=== PATIENT | female | born 1940 | race Two or more races ===

== ENCOUNTER 2020-09-30 12:20 | Emergency (ER) | payer MEDICARE ==
[~2020-09-30] VITALS: Ht 167.6 cm; Wt 75.3 kg
--- NOTE | 2020-09-30 12:53 | NUR ---
Patient came in to the er c/o weakness, cough, and congestion x 10 days. On room air, breathing evenly and unlabored. Connected to the monitor and pulse ox. kept comfortable, will continue to monitor accordingly.
--- NOTE | 2020-09-30 13:04 | NUR ---
SEPTIC WORK UP DONE, LABS AND URINE SENT TO LABS ASYMPTOMATIC
[2020-09-30 13:09] LABS: BASOPHILS % (AUTO) 0.5 % (0.0-2.0); EOSINOPHILS % (AUTO) 3.3 % (0.0-6.0); HEMATOCRIT 40 % (33-45); HEMOGLOBIN 13.5 g/dL (11.5-14.8); LYMPHOCYTES # (AUTO) 2.1 /CMM (0.8-4.8); LYMPHOCYTES % (AUTO) 33.1 % (20.0-44.0); MEAN CORPUSCULAR HGB CONC 34 g/dl (31.0-36.0); MEAN CORPUSCULAR VOLUME 91 fL (82-100); MONOCYTES # (AUTO) 0.5 /CMM (0.1-1.30); MONOCYTES % (AUTO) 7.8 % (2.0-12.0); NEUTROPHILS # (AUTO) 3.6 /CMM (1.8-8.9); NEUTROPHILS % (AUTO) 55.3 % (43.0-81.0); PLATELET COUNT (AUTO) 296 /CMM (150-450); WHITE BLOOD COUNT (AUTO) 6.5 K/uL (4.3-11.0)
[2020-09-30 13:18] LABS: BILIRUBIN,URINE Negative (NEGATIVE); COLOR,URINE YELLOW (YELLOW); LEUKOCYTE ESTERASE ,URINE Negative (NEGATIVE); NITRITE, URINE Negative (NEGATIVE); PROTEIN,URINE Negative (NEGATIVE); UGLUCOSE Negative (NEGATIVE); UROBILINOGEN,URINE 0.2 EU/dL (0.2)
[2020-09-30 13:33] LABS: ALANINE AMINOTRANSFERASE 22 U/L (12-78); ALBUMIN 3.8 g/dL (3.4-5.0); ALKALINE PHOSPHATASE 75 U/L (46-116); ASPARTATE AMINOTRANSFERASE 16 U/L (15-37); BILIRUBIN,DIRECT 0.1 mg/dL (0.0-0.2); BILIRUBIN,TOTAL 0.7 mg/dL (0.2-1.0); CALCIUM, SERUM 10.3 mg/dL (8.5-10.1); CARBON DIOXIDE 28 mmol/L (21-32); CHLORIDE 105 mmol/L (98-107); CREATININE 0.7 mg/dL (0.6-1.3); GLUCOSE 124 mg/dL (74-106); SODIUM SERUM 141 mmol/L (136-145); TOTAL PROTEIN, SERUM 8.1 g/dL (6.4-8.2); UREA NITROGEN, BLOOD 21 mg/dL (7-18)
[2020-09-30 13:35] LABS: BACTERIA,URINE Rare /HPF (None Seen); SQUAMOUS EPITHELIAL CELL,UR 0-2 /HPF (None Seen); WBC,URINE 0-2 /HPF (0-3)
[2020-09-30] MEDS ORDERED: AZIT250T PO (13:56)
[2020-09-30] MEDS ORDERED: GUAI-671 PO (13:56)
[2020-09-30 14:15] VITALS: BP 144/73
--- NOTE | 2020-09-30 14:16 | NUR ---
Patient discharged to home in stable condition. Written and verbal after care instructions given. Patient verbalizes understanding of instruction.IV removed. Catheter intact and site benign. Pressure and 4x4 applied to site. No bleeding noted.
== END 2020-09-30 14:16 | disposition home or self-care (01) ==
LOC: ER 12:24
DX: J20.9 Acute bronchitis, unspecified (principal); Z20.822 Contact with and (suspected) exposure to COVID-19; I10 Essential (primary) hypertension
CPT/HCPCS: 36415; 71045; 80048; 80076; 81001; 83605; 84145; 84484; 85025; 85730; 87040 ×2; 87086; 87426; 93005; 99285; C9803

== ENCOUNTER 2020-12-31 13:46 | Emergency (ER) | payer MEDICARE ==
[~2020-12-31] VITALS: Ht 160 cm; Wt 75.7 kg
[~2020-12-31 13:46] MED LIST: AZIT250T PO; GUAI-671 PO
--- NOTE | 2020-12-31 13:46 | NUR ---
PT BIB SELF C/O R FLANK PAIN, DYSURIA X 2 DAYS. 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 WILL CONTINUE TO MONITOR.
--- NOTE | 2020-12-31 14:29 | NUR ---
AT BEDSIDE FOR EVAL.
[2020-12-31] MEDS ORDERED: MORPHINE SULFATE INJ 4 MG/ML DISP.SYRIN ONE (14:35)
[2020-12-31] MEDS ORDERED: ONDANSETRON HCL/PF 4 MG/2 ML VIAL ONE (14:35)
--- NOTE | 2020-12-31 14:42 | NUR ---
IV LINE ESTABLISHED BLOOD DRAWN AND SENT TO LAB.
[2020-12-31 14:46] LABS: BASOPHILS # (AUTO) 0.1 K/uL (0.0-0.2); BASOPHILS % (AUTO) 0.5 % (0.0-2.0); EOSINOPHILS % (AUTO) 0.3 % (0.0-6.0); HEMATOCRIT 40 % (33-45); HEMOGLOBIN 13.3 g/dL (11.5-14.8); LYMPHOCYTES # (AUTO) 1.7 K/uL (0.8-4.8); LYMPHOCYTES % (AUTO) 12.7 % (20.0-44.0); MEAN CORPUSCULAR HGB CONC 33 g/dl (31.0-36.0); MEAN CORPUSCULAR VOLUME 91 fL (82-100); MONOCYTES # (AUTO) 1.1 K/uL (0.1-1.30); MONOCYTES % (AUTO) 8.1 % (2.0-12.0); NEUTROPHILS # (AUTO) 10.4 K/uL (1.8-8.9); NEUTROPHILS % (AUTO) 78.4 % (43.0-81.0); PLATELET COUNT (AUTO) 244 K/uL (150-450); RED BLOOD CELL COUNT(AUTO) 4.41 MIL/uL (4.0-5.2); WHITE BLOOD COUNT (AUTO) 13.3 K/uL (4.3-11.0)
[2020-12-31 14:57] LABS: BILIRUBIN,URINE SMALL (NEGATIVE); COLOR,URINE YELLOW (YELLOW); LEUKOCYTE ESTERASE ,URINE Negative (NEGATIVE); NITRITE, URINE Negative (NEGATIVE); PH,URINE 5.5 (5.0-8.0); PROTEIN,URINE 30 mg/dl (NEGATIVE); UGLUCOSE Negative (NEGATIVE); UROBILINOGEN,URINE 0.2 EU/dL (0.2)
[2020-12-31 14:58] LABS: CALCIUM, SERUM 9.2 mg/dL (8.5-10.1); CREATININE 1.1 mg/dL (0.6-1.3); POTASSIUM 3.6 mmol/L (3.5-5.1)
[2020-12-31] MEDS ORDERED: ONDANSETRON HCL/PF 4 MG/2 ML VIAL IVP ONE (15:00)
[2020-12-31] MEDS ORDERED: IV NS 0.9% 1,000 ML BAG IV ONE (15:00)
[2020-12-31] MEDS ORDERED: MORPHINE SULFATE INJ 2 MG/ML DISP.SYRIN IV ONE (15:00)
[2020-12-31 15:04] LABS: BILIRUBIN,DIRECT 0.2 mg/dL (0.0-0.2); BILIRUBIN,TOTAL 1.3 mg/dL (0.2-1.0); TOTAL PROTEIN, SERUM 8.2 g/dL (6.4-8.2)
[2020-12-31] MEDS ORDERED: IV NS 0.9% 250 ML IV ONE (15:06)
[2020-12-31] MEDS ORDERED: CT SWABBABLE VALVE TRANS SET 1 EA INFUS.SET MC ONE (15:06)
[2020-12-31] MEDS ORDERED: IOHEXOL-300 100 ML VIAL IV ONE (15:06)
[2020-12-31 15:08] LABS: WBC,URINE 0-2 /HPF (0-3)
[2020-12-31 15:09] LABS: BACTERIA,URINE Few /HPF (None Seen); SQUAMOUS EPITHELIAL CELL,UR Moderate /HPF (None Seen)
--- NOTE | 2020-12-31 15:19 | NUR ---
PT IS BACK FROM THE CT SCAN.
[2020-12-31] MEDS ORDERED: KETOROLAC TROMETHAMINE 15 MG/ML VIAL ONE (15:21)
[2020-12-31] MEDS ORDERED: KETOROLAC TROMETHAMINE INJ 30 MG/ML VIAL IV ONE (15:30)
[2020-12-31] MEDS ORDERED: LEVO88TA5 PO (15:51)
[2020-12-31] MEDS ORDERED: LOSA50TA39 PO (15:51)
[2020-12-31] MEDS ORDERED: IBUP-1957 PO (17:01)
[2020-12-31] MEDS ORDERED: ONDA4TAB11 PO (17:01)
[2020-12-31 17:17] VITALS: BP 125/76
--- NOTE | 2020-12-31 17:17 | NUR ---
IV removed. Catheter intact and site benign. Pressure and 4x4 applied to site. No bleeding noted. Patient discharged to home in stable condition. Written and verbal after care instructions given. Patient verbalizes understanding of instruction.
== END 2020-12-31 17:17 | disposition home or self-care (01) ==
LOC: ER 13:48
DX: N20.0 Calculus of kidney (principal); R10.31 Right lower quadrant pain; R11.2 Nausea with vomiting, unspecified; I10 Essential (primary) hypertension; Z88.8 Allergy status to other drugs, medicaments and biological substances; Z79.899 Other long term (current) drug therapy
CPT/HCPCS: 36415; 74177; 76705; 80048; 80076; 81001; 83690; 85025; 96361; 96374; 96375; 99285; J1885; J2270; J2405; J7030; J7050; Q9967

== ENCOUNTER 2024-03-16 11:37 | Inpatient (IN) | payer MEDICARE ==
[~2024-03-16] VITALS: Ht 167.6 cm; Wt 68.0 kg
[~2024-03-16 11:37] MED LIST changes: -AZIT250T PO; -GUAI-671 PO; +IBUP-1957 PO; +LEVO88TA5 PO; +LOSA50TA39 PO; +ONDA4TAB11 PO
[2024-03-16 12:15] LABS: BASOPHILS % (AUTO) 0.3 % (0.0-2.0); EOSINOPHILS # (AUTO) 0.2 K/uL (0.0-0.7); EOSINOPHILS % (AUTO) 2.6 % (0.0-6.0); HEMATOCRIT 37 % (33-45); HEMOGLOBIN 12.8 g/dL (11.5-14.8); LYMPHOCYTES % (AUTO) 31.8 % (20.0-44.0); MEAN CORPUSCULAR HEMOGLOBIN 32 PG (26.0-33.0); MEAN CORPUSCULAR HGB CONC 34 g/dl (31.0-36.0); MEAN CORPUSCULAR VOLUME 92 fL (82-100); MONOCYTES # (AUTO) 0.4 K/uL (0.1-1.30); MONOCYTES % (AUTO) 6.4 % (2.0-12.0); NEUTROPHILS # (AUTO) 3.8 K/uL (1.8-8.9); NEUTROPHILS % (AUTO) 58.9 % (43.0-81.0); PLATELET COUNT (AUTO) 228 K/uL (150-450); RED BLOOD CELL COUNT(AUTO) 4.05 MIL/uL (4.0-5.2); WHITE BLOOD COUNT (AUTO) 6.4 K/uL (4.3-11.0)
[2024-03-16 12:27] LABS: CALCIUM, SERUM 9.7 mg/dL (8.5-10.1); CARBON DIOXIDE 27 mmol/L (21-32); CHLORIDE 105 mmol/L (98-107); CREATININE 0.7 mg/dL (0.6-1.3); GLUCOSE 138 mg/dL (74-106); POTASSIUM 3.8 mmol/L (3.5-5.1); SODIUM SERUM 142 mmol/L (136-145); UREA NITROGEN, BLOOD 18 mg/dL (7-18)
[2024-03-16] MEDS ORDERED: AMLO5TAB4 PO (12:27)
[2024-03-16] MEDS ORDERED: ASPIRIN 81 MG TAB.CHEW ONE (14:08)
[2024-03-16] MEDS: ASPIRIN 81 MG TAB.CHEW PO ONE (14:11)
[2024-03-16] MEDS ORDERED: CLONIDINE HCL 0.1 MG TABLET PO PRN (17:30)
[2024-03-16] MEDS ORDERED: Z GUARD REMEDY 4 OZ OINT TP PRN (17:30)
[2024-03-16] MEDS ORDERED: ONDANSETRON HCL/PF 4 MG/2 ML VIAL IVP PRN (17:30)
[2024-03-16] MEDS ORDERED: MAG HYDROX/AL HYDROX/SIMETH 30 ML UDC PO PRN (17:30)
[2024-03-16 17:34] VITALS: BP 160/69; TEMP 97.7; O2SAT 97
[2024-03-16] MEDS: LOSARTAN POTASSIUM 50 MG TABLET PO SCH (17:40)
[2024-03-16] MEDS: ENOXAPARIN SODIUM 40 MG/0.4 ML DISP.SYRIN SQ SCH (17:41)
[2024-03-16 17:42] VITALS: BP 160/69; TEMP 97.7; O2SAT 97
[2024-03-16 20:28] VITALS: BP 122/61; TEMP 97.9; O2SAT 95
[2024-03-17 00:14] VITALS: BP 124/70; TEMP 97.7; O2SAT 94
[2024-03-17 04:15] VITALS: BP 117/66; TEMP 97.7; O2SAT 97
[2024-03-17 06:46] LABS: BASOPHILS % (AUTO) 0.2 % (0.0-2.0); EOSINOPHILS # (AUTO) 0.2 K/uL (0.0-0.7); EOSINOPHILS % (AUTO) 3.2 % (0.0-6.0); HEMATOCRIT 35 % (33-45); HEMOGLOBIN 11.6 g/dL (11.5-14.8); LYMPHOCYTES # (AUTO) 2.6 K/uL (0.8-4.8); LYMPHOCYTES % (AUTO) 44.1 % (20.0-44.0); MEAN CORPUSCULAR HEMOGLOBIN 31 PG (26.0-33.0); MEAN CORPUSCULAR HGB CONC 33 g/dl (31.0-36.0); MEAN CORPUSCULAR VOLUME 91 fL (82-100); MONOCYTES # (AUTO) 0.5 K/uL (0.1-1.30); MONOCYTES % (AUTO) 8.4 % (2.0-12.0); NEUTROPHILS # (AUTO) 2.6 K/uL (1.8-8.9); NEUTROPHILS % (AUTO) 44.1 % (43.0-81.0); PLATELET COUNT (AUTO) 205 K/uL (150-450); RED CELL DISTRIBUTION WIDTH 12.9 % (11.5-15.0); WHITE BLOOD COUNT (AUTO) 5.8 K/uL (4.3-11.0)
[2024-03-17 07:01] LABS: CALCIUM, SERUM 8.6 mg/dL (8.5-10.1); CARBON DIOXIDE 31 mmol/L (21-32); CHLORIDE 108 mmol/L (98-107); CREATININE 0.7 mg/dL (0.6-1.3); GLUCOSE 99 mg/dL (74-106); MAGNESIUM 1.7 mg/dL (1.8-2.4); PHOSPHORUS 3.7 mg/dL (2.5-4.9); POTASSIUM 4.2 mmol/L (3.5-5.1); SODIUM SERUM 143 mmol/L (136-145); UREA NITROGEN, BLOOD 18 mg/dL (7-18)
[2024-03-17] MEDS: LEVOTHYROXINE SODIUM 88 MCG TABLET PO SCH (07:34)
[2024-03-17] MEDS: AMLODIPINE BESYLATE 5 MG TABLET PO SCH (08:22)
[2024-03-17] MEDS: ASPIRIN 81 MG TAB.CHEW PO SCH (08:22)
[2024-03-17 09:15] VITALS: BP 148/67; TEMP 98.3; O2SAT 97
[2024-03-17] MEDS: ATORVASTATIN 10 MG TABLET PO SCH (10:19)
[2024-03-17] MEDS: METOPROLOL TARTRATE 50 MG TABLET PO SCH (10:20)
[2024-03-17] MEDS: Magnesium 1GM/D5W 100ML PREMIX 100 ML IV SCH (10:21)
[2024-03-17 11:45] LABS: THYROID STIMULATING HORMONE 3.94 uIU/mL (0.358-3.74)
[2024-03-17 12:30] VITALS: BP 133/57; TEMP 98.3; O2SAT 96
[2024-03-17] MEDS ORDERED: CT SWABBABLE VALVE TRANS SET 1 EA INFUS.SET MC ONE (13:11)
[2024-03-17] MEDS ORDERED: NITROGLYCERIN 0.4 MG/TAB BOTTLE ONE (13:11)
[2024-03-17] MEDS ORDERED: IOHEXOL-350 100 ML VIAL IV ONE (13:11)
[2024-03-17] MEDS ORDERED: IV NS 0.9% 250 ML IV ONE (13:12)
[2024-03-17] MEDS: NITROGLYCERIN 0.4 MG/TAB BOTTLE SL ONE (13:44)
[2024-03-17] MEDS ORDERED: METOPROLOL TARTRATE INJ 5 MG/5 ML AMPUL IVP PRN (14:00)
[2024-03-17 16:45] VITALS: BP 132/63; TEMP 98.3; O2SAT 98
[2024-03-17] MEDS: MAGNESIUM HYDROXIDE 30 ML UDC PO PRN (20:03)
[2024-03-17 20:30] VITALS: BP 135/66; TEMP 98.1; O2SAT 96
[2024-03-18] VITALS: BP 125/67; TEMP 97.7; O2SAT 97
[2024-03-18 00:10] VITALS: BP 125/67; TEMP 97.7; O2SAT 97
[2024-03-18] MEDS: ACETAMINOPHEN 325 MG TABLET PO PRN (00:33)
[2024-03-18 04:00] VITALS: BP 127/64; TEMP 97.5; O2SAT 96
[2024-03-18 04:15] VITALS: BP 127/64; TEMP 97.5; O2SAT 96
[2024-03-18 08:00] VITALS: BP 144/63; TEMP 97.7; O2SAT 98
[2024-03-18 12:00] VITALS: BP 103/63; TEMP 97.9; O2SAT 96
[2024-03-18] MEDS ORDERED: ASPI-1169 PO (13:51)
[2024-03-18] MEDS ORDERED: METO50TA16 PO (13:51)
[2024-03-18] MEDS ORDERED: ATOR10TA PO (13:51)
== END 2024-03-18 17:08 | disposition home or self-care (01) | DRG 303 ==
LOC: ER 11:44 → TELE 16:33
PROVIDERS: ADMIT Internal Medicine; ATTEND Internal Medicine
DX: I25.10 Atherosclerotic heart disease of native coronary artery without angina pectoris (principal); I10 Essential (primary) hypertension; E11.9 Type 2 diabetes mellitus without complications; E78.5 Hyperlipidemia, unspecified; Z87.891 Personal history of nicotine dependence; E03.9 Hypothyroidism, unspecified; I73.9 Peripheral vascular disease, unspecified
CPT/HCPCS: 36415; 71045-TC; 75574; 80048-TC; 80061-TC; 83735-TC; 84100-TC; 84439-TC; 84443-TC; 84484-TC; 85025-TC; 93307-TC; A4223; G0378; J1650; J3475; J7030; J7050; Q9967

== ENCOUNTER 2024-04-26 17:10 | Inpatient (IN) | payer MEDICARE ==
[~2024-04-26] VITALS: Ht 167.6 cm; Wt 68.5 kg
[~2024-04-26 17:10] MED LIST changes: +AMLO5TAB4 PO; +ASPI-1169 PO; +ATOR10TA PO; -IBUP-1957 PO; +METO50TA16 PO; -ONDA4TAB11 PO
[2024-04-26 18:11] LABS: BASOPHILS % (AUTO) 0.1 % (0.0-2.0); EOSINOPHILS # (AUTO) 0.2 K/uL (0.0-0.7); EOSINOPHILS % (AUTO) 1.9 % (0.0-6.0); HEMATOCRIT 35 % (33-45); HEMOGLOBIN 11.8 g/dL (11.5-14.8); LYMPHOCYTES % (AUTO) 24.2 % (20.0-44.0); MEAN CORPUSCULAR HEMOGLOBIN 31 PG (26.0-33.0); MEAN CORPUSCULAR HGB CONC 33 g/dl (31.0-36.0); MEAN CORPUSCULAR VOLUME 92 fL (82-100); MONOCYTES # (AUTO) 0.7 K/uL (0.1-1.30); MONOCYTES % (AUTO) 8.6 % (2.0-12.0); NEUTROPHILS # (AUTO) 5.3 K/uL (1.8-8.9); NEUTROPHILS % (AUTO) 65.2 % (43.0-81.0); PLATELET COUNT (AUTO) 238 K/uL (150-450); RED BLOOD CELL COUNT(AUTO) 3.85 MIL/uL (4.0-5.2); RED CELL DISTRIBUTION WIDTH 13.7 % (11.5-15.0); WHITE BLOOD COUNT (AUTO) 8.1 K/uL (4.3-11.0)
[2024-04-26 18:36] LABS: CALCIUM, SERUM 9.4 mg/dL (8.5-10.1); CARBON DIOXIDE 27 mmol/L (21-32); CHLORIDE 104 mmol/L (98-107); CREATININE 0.8 mg/dL (0.6-1.3); GLUCOSE 99 mg/dL (74-106); POTASSIUM 4.2 mmol/L (3.5-5.1); SODIUM SERUM 140 mmol/L (136-145); UREA NITROGEN, BLOOD 20 mg/dL (7-18)
[2024-04-26] MEDS: HEPARIN SODIUM, PORCINE 5000 UNITS/1 ML VIAL IV ONE (19:00)
[2024-04-26] MEDS: HEPARIN INFUSION/D5W 500 ML IV ONE (19:00)
[2024-04-26] MEDS ORDERED: CLOP75TA15 PO (19:13)
[2024-04-26] MEDS ORDERED: LOSA100T31 PO (19:13)
[2024-04-26] MEDS ORDERED: HEPARIN SODIUM, PORCINE 5000 UNITS/1 ML VIAL ONE (19:47)
[2024-04-26] MEDS: HEPARIN INFUSION/D5W 500 ML IV PRN (20:07)
[2024-04-26 20:47] LABS: INR 1.04 (0.91-1.10); PARTIAL THROMBOPLASTIN TIME 26.5 SEC (24.3-34.3)
[2024-04-26] MEDS ORDERED: ACETAMINOPHEN 325 MG TABLET PO PRN (21:00)
[2024-04-26] MEDS ORDERED: MAG HYDROX/AL HYDROX/SIMETH 30 ML UDC PO PRN (21:00)
[2024-04-26] MEDS ORDERED: ONDANSETRON HCL/PF 4 MG/2 ML VIAL IVP PRN (21:00)
[2024-04-26] MEDS ORDERED: Z GUARD REMEDY 4 OZ OINT TP PRN (21:00)
[2024-04-26 21:52] VITALS: BP 148/65; TEMP 97.7; O2SAT 98
[2024-04-27] VITALS: BP 119/52; TEMP 97.7; O2SAT 97
[2024-04-27 03:01] LABS: BASOPHILS % (AUTO) 0.1 % (0.0-2.0); EOSINOPHILS # (AUTO) 0.2 K/uL (0.0-0.7); EOSINOPHILS % (AUTO) 2.3 % (0.0-6.0); HEMATOCRIT 32 % (33-45); HEMOGLOBIN 10.9 g/dL (11.5-14.8); LYMPHOCYTES # (AUTO) 2.2 K/uL (0.8-4.8); LYMPHOCYTES % (AUTO) 28.7 % (20.0-44.0); MEAN CORPUSCULAR HEMOGLOBIN 31 PG (26.0-33.0); MEAN CORPUSCULAR HGB CONC 34 g/dl (31.0-36.0); MEAN CORPUSCULAR VOLUME 93 fL (82-100); MONOCYTES # (AUTO) 0.6 K/uL (0.1-1.30); NEUTROPHILS # (AUTO) 4.7 K/uL (1.8-8.9); NEUTROPHILS % (AUTO) 60.9 % (43.0-81.0); PLATELET COUNT (AUTO) 202 K/uL (150-450); RED BLOOD CELL COUNT(AUTO) 3.49 MIL/uL (4.0-5.2); RED CELL DISTRIBUTION WIDTH 13.8 % (11.5-15.0); WHITE BLOOD COUNT (AUTO) 7.7 K/uL (4.3-11.0)
[2024-04-27 03:10] LABS: CALCIUM, SERUM 9.2 mg/dL (8.5-10.1); CARBON DIOXIDE 31 mmol/L (21-32); CHLORIDE 105 mmol/L (98-107); CREATININE 0.9 mg/dL (0.6-1.3); GLUCOSE 157 mg/dL (74-106); MAGNESIUM 2.2 mg/dL (1.8-2.4); PHOSPHORUS 3.8 mg/dL (2.5-4.9); POTASSIUM 3.5 mmol/L (3.5-5.1); SODIUM SERUM 140 mmol/L (136-145); UREA NITROGEN, BLOOD 20 mg/dL (7-18)
[2024-04-27 04:00] VITALS: BP 129/66; TEMP 98.7; O2SAT 97
[2024-04-27 05:05] VITALS: BP 129/66; TEMP 98.7; O2SAT 97
[2024-04-27] MEDS: LEVOTHYROXINE SODIUM 88 MCG TABLET PO SCH (08:19)
[2024-04-27] MEDS ORDERED: PANTOPRAZOLE 40 MG VIAL IV SCH (09:00)
[2024-04-27] MEDS: PANTOPRAZOLE 40 MG TABLET.DR PO SCH (09:12)
[2024-04-27] MEDS: LOSARTAN POTASSIUM 50 MG TABLET PO SCH (09:13)
[2024-04-27] MEDS: ATORVASTATIN 10 MG TABLET PO SCH (09:14)
[2024-04-27] MEDS: AMLODIPINE BESYLATE 5 MG TABLET PO SCH (09:14)
[2024-04-27] MEDS: MAGNESIUM HYDROXIDE 30 ML UDC PO PRN (16:02)
[2024-04-27 16:09] LABS: INR 1.09 (0.91-1.10); PARTIAL THROMBOPLASTIN TIME 45.7 SEC (24.3-34.3); PROTHROMBIN TIME 11.5 SECS (9.2-11.1)
[2024-04-27 20:00] VITALS: BP 113/60; TEMP 98.4; O2SAT 98
[2024-04-28] VITALS (7 sets, daily range): BP systolic 107–146; BP diastolic 58–75; TEMP 97.7–98.2; O2SAT 94–98
[2024-04-28 06:34] LABS: BASOPHILS % (AUTO) 0.1 % (0.0-2.0); EOSINOPHILS # (AUTO) 0.3 K/uL (0.0-0.7); EOSINOPHILS % (AUTO) 3.5 % (0.0-6.0); HEMATOCRIT 36 % (33-45); LYMPHOCYTES # (AUTO) 2.6 K/uL (0.8-4.8); LYMPHOCYTES % (AUTO) 34.7 % (20.0-44.0); MEAN CORPUSCULAR HEMOGLOBIN 31 PG (26.0-33.0); MEAN CORPUSCULAR HGB CONC 33 g/dl (31.0-36.0); MEAN CORPUSCULAR VOLUME 93 fL (82-100); MONOCYTES # (AUTO) 0.6 K/uL (0.1-1.30); MONOCYTES % (AUTO) 7.4 % (2.0-12.0); NEUTROPHILS # (AUTO) 4.1 K/uL (1.8-8.9); NEUTROPHILS % (AUTO) 54.3 % (43.0-81.0); PLATELET COUNT (AUTO) 239 K/uL (150-450); RED BLOOD CELL COUNT(AUTO) 3.87 MIL/uL (4.0-5.2); RED CELL DISTRIBUTION WIDTH 13.7 % (11.5-15.0); WHITE BLOOD COUNT (AUTO) 7.5 K/uL (4.3-11.0)
[2024-04-28 06:37] LABS: CALCIUM, SERUM 9.8 mg/dL (8.5-10.1); CARBON DIOXIDE 28 mmol/L (21-32); CHLORIDE 105 mmol/L (98-107); CREATININE 0.9 mg/dL (0.6-1.3); GLUCOSE 122 mg/dL (74-106); INR 1.08 (0.91-1.10); POTASSIUM 4.4 mmol/L (3.5-5.1); PROTHROMBIN TIME 11.4 SECS (9.2-11.1); SODIUM SERUM 142 mmol/L (136-145); UREA NITROGEN, BLOOD 21 mg/dL (7-18)
[2024-04-28 15:28] LABS: INR 1.06 (0.91-1.10); PROTHROMBIN TIME 11.2 SECS (9.2-11.1)
[2024-04-28] MEDS: MAGNESIUM HYDROXIDE 30 ML UDC PO PRN (17:30)
[2024-04-28 23:53] LABS: INR 1.07 (0.91-1.10); PROTHROMBIN TIME 11.3 SECS (9.2-11.1)
[2024-04-29] VITALS (7 sets, daily range): BP systolic 115–139; BP diastolic 60–83; TEMP 97.7–98.6; O2SAT 94–100
[2024-04-29 00:01] LABS: PARTIAL THROMBOPLASTIN TIME 113.9 SEC (24.3-34.3)
[2024-04-29 06:32] LABS: BASOPHILS % (AUTO) 0.1 % (0.0-2.0); EOSINOPHILS # (AUTO) 0.2 K/uL (0.0-0.7); HEMATOCRIT 35 % (33-45); HEMOGLOBIN 11.9 g/dL (11.5-14.8); LYMPHOCYTES # (AUTO) 1.7 K/uL (0.8-4.8); LYMPHOCYTES % (AUTO) 22.4 % (20.0-44.0); MEAN CORPUSCULAR HEMOGLOBIN 31 PG (26.0-33.0); MEAN CORPUSCULAR HGB CONC 34 g/dl (31.0-36.0); MEAN CORPUSCULAR VOLUME 92 fL (82-100); MONOCYTES # (AUTO) 0.6 K/uL (0.1-1.30); MONOCYTES % (AUTO) 7.9 % (2.0-12.0); NEUTROPHILS # (AUTO) 5.1 K/uL (1.8-8.9); NEUTROPHILS % (AUTO) 66.6 % (43.0-81.0); PLATELET COUNT (AUTO) 246 K/uL (150-450); RED BLOOD CELL COUNT(AUTO) 3.83 MIL/uL (4.0-5.2); RED CELL DISTRIBUTION WIDTH 13.8 % (11.5-15.0); WHITE BLOOD COUNT (AUTO) 7.7 K/uL (4.3-11.0)
[2024-04-29 06:38] LABS: CALCIUM, SERUM 9.7 mg/dL (8.5-10.1); CARBON DIOXIDE 30 mmol/L (21-32); CHLORIDE 103 mmol/L (98-107); CREATININE 0.8 mg/dL (0.6-1.3); GLUCOSE 118 mg/dL (74-106); POTASSIUM 4.3 mmol/L (3.5-5.1); SODIUM SERUM 139 mmol/L (136-145); UREA NITROGEN, BLOOD 21 mg/dL (7-18)
[2024-04-29 06:45] LABS: INR 1.03 (0.91-1.10); PROTHROMBIN TIME 10.9 SECS (9.2-11.1)
[2024-04-29 12:11] LABS: INR 1.03 (0.91-1.10); PARTIAL THROMBOPLASTIN TIME 54.4 SEC (24.3-34.3); PROTHROMBIN TIME 10.9 SECS (9.2-11.1)
[2024-04-29] MEDS: METOPROLOL TARTRATE 25 MG TABLET PO SCH (12:36)
[2024-04-29] MEDS ORDERED: IV NS 0.9% 250 ML IV ONE (14:40)
[2024-04-29] MEDS ORDERED: IOHEXOL-350 100 ML VIAL IV ONE (14:40)
[2024-04-29] MEDS ORDERED: CT SWABBABLE VALVE TRANS SET 1 EA INFUS.SET MC ONE (14:40)
[2024-04-29] MEDS ORDERED: METOPROLOL TARTRATE INJ 5 MG/5 ML AMPUL ONE (14:48)
[2024-04-29] MEDS: METOPROLOL TARTRATE INJ 5 MG/5 ML AMPUL IVP PRN (14:54)
[2024-04-29 18:27] LABS: INR 1.03 (0.91-1.10); PARTIAL THROMBOPLASTIN TIME 41.9 SEC (24.3-34.3); PROTHROMBIN TIME 10.9 SECS (9.2-11.1)
[2024-04-30] VITALS: BP 129/68; TEMP 97.9; O2SAT 95
[2024-04-30 01:25] LABS: INR 1.05 (0.91-1.10); PARTIAL THROMBOPLASTIN TIME 58.9 SEC (24.3-34.3); PROTHROMBIN TIME 11.1 SECS (9.2-11.1)
[2024-04-30 04:00] VITALS: BP 134/62; TEMP 98.1; O2SAT 98
[2024-04-30 04:26] VITALS: BP 134/62; TEMP 98.1; O2SAT 98
[2024-04-30] MEDS ORDERED: HEPARIN INFUSION/D5W 500 ML IV ONE (05:13)
[2024-04-30 06:35] LABS: BASOPHILS % (AUTO) 0.1 % (0.0-2.0); EOSINOPHILS # (AUTO) 0.3 K/uL (0.0-0.7); EOSINOPHILS % (AUTO) 3.6 % (0.0-6.0); HEMATOCRIT 36 % (33-45); LYMPHOCYTES % (AUTO) 28.2 % (20.0-44.0); MEAN CORPUSCULAR HEMOGLOBIN 31 PG (26.0-33.0); MEAN CORPUSCULAR HGB CONC 34 g/dl (31.0-36.0); MEAN CORPUSCULAR VOLUME 93 fL (82-100); MONOCYTES # (AUTO) 0.5 K/uL (0.1-1.30); MONOCYTES % (AUTO) 7.1 % (2.0-12.0); NEUTROPHILS # (AUTO) 4.4 K/uL (1.8-8.9); PLATELET COUNT (AUTO) 258 K/uL (150-450); RED BLOOD CELL COUNT(AUTO) 3.86 MIL/uL (4.0-5.2); RED CELL DISTRIBUTION WIDTH 13.7 % (11.5-15.0); WHITE BLOOD COUNT (AUTO) 7.2 K/uL (4.3-11.0)
[2024-04-30 07:03] LABS: INR 1.04 (0.91-1.10); PARTIAL THROMBOPLASTIN TIME 61.6 SEC (24.3-34.3)
[2024-04-30 07:35] LABS: CALCIUM, SERUM 10.2 mg/dL (8.5-10.1); CARBON DIOXIDE 29 mmol/L (21-32); CHLORIDE 103 mmol/L (98-107); CREATININE 0.8 mg/dL (0.6-1.3); GLUCOSE 110 mg/dL (74-106); POTASSIUM 4.2 mmol/L (3.5-5.1); SODIUM SERUM 140 mmol/L (136-145); UREA NITROGEN, BLOOD 16 mg/dL (7-18)
[2024-04-30 08:00] VITALS: BP 133/62; TEMP 98.2; O2SAT 94
[2024-04-30 12:39] LABS: INR 1.06 (0.91-1.10); PARTIAL THROMBOPLASTIN TIME 56.9 SEC (24.3-34.3); PROTHROMBIN TIME 11.2 SECS (9.2-11.1)
[2024-04-30 16:00] VITALS: BP 118/57; TEMP 98.2; O2SAT 97
[2024-04-30 19:08] LABS: INR 1.04 (0.91-1.10); PARTIAL THROMBOPLASTIN TIME 55.5 SEC (24.3-34.3)
[2024-04-30 20:00] VITALS: BP 124/65; TEMP 97.5; O2SAT 95
[2024-05-01 00:22] LABS: INR 1.02 (0.91-1.10); PARTIAL THROMBOPLASTIN TIME 66.9 SEC (24.3-34.3); PROTHROMBIN TIME 10.8 SECS (9.2-11.1)
[2024-05-01 07:30] VITALS: BP 146/68; TEMP 98.1; O2SAT 98
[2024-05-01 07:59] LABS: INR 1.05 (0.91-1.10); PARTIAL THROMBOPLASTIN TIME 68.3 SEC (24.3-34.3); PROTHROMBIN TIME 11.1 SECS (9.2-11.1)
[2024-05-01] MEDS ORDERED: NITROGLYCERIN IN 5 % DEXTROSE 250 ML IV ONE (12:06)
[2024-05-01] MEDS ORDERED: IV NS 0.9% 500 ML IV ONE (12:06)
[2024-05-01] MEDS ORDERED: LIDOCAINE HCL/MPF 1% 30 ML VIAL IJ ONE (12:06)
[2024-05-01] MEDS ORDERED: IV SET PRIMARY PUMP SET 1 EA INFUS.SET MC ONE (12:06)
[2024-05-01] MEDS ORDERED: IODIXANOL 150 ML IV ONE (12:06)
[2024-05-01] MEDS ORDERED: FENTANYL PF 100MCG/2ML AMPUL ONE (13:07)
[2024-05-01] MEDS ORDERED: MIDAZOLAM HCL 2 MG/2ML VIAL ONE (13:07)
[2024-05-01 16:27] VITALS: BP 129/65; TEMP 97.7; O2SAT 99
[2024-05-01 20:00] VITALS: BP 101/61; TEMP 97.5; O2SAT 94
[2024-05-02] VITALS: BP 138/63; TEMP 98.1; O2SAT 98
[2024-05-02 04:00] VITALS: BP 114/55; TEMP 98.1; O2SAT 96
[2024-05-02 06:24] LABS: BASOPHILS % (AUTO) 0.2 % (0.0-2.0); EOSINOPHILS # (AUTO) 0.3 K/uL (0.0-0.7); EOSINOPHILS % (AUTO) 3.7 % (0.0-6.0); HEMATOCRIT 32 % (33-45); HEMOGLOBIN 11.1 g/dL (11.5-14.8); LYMPHOCYTES # (AUTO) 1.8 K/uL (0.8-4.8); LYMPHOCYTES % (AUTO) 25.4 % (20.0-44.0); MEAN CORPUSCULAR HEMOGLOBIN 31 PG (26.0-33.0); MEAN CORPUSCULAR HGB CONC 34 g/dl (31.0-36.0); MEAN CORPUSCULAR VOLUME 92 fL (82-100); MONOCYTES # (AUTO) 0.5 K/uL (0.1-1.30); MONOCYTES % (AUTO) 7.5 % (2.0-12.0); NEUTROPHILS # (AUTO) 4.5 K/uL (1.8-8.9); NEUTROPHILS % (AUTO) 63.2 % (43.0-81.0); PLATELET COUNT (AUTO) 232 K/uL (150-450); RED BLOOD CELL COUNT(AUTO) 3.54 MIL/uL (4.0-5.2); RED CELL DISTRIBUTION WIDTH 13.5 % (11.5-15.0); WHITE BLOOD COUNT (AUTO) 7.1 K/uL (4.3-11.0)
[2024-05-02 06:43] LABS: CALCIUM, SERUM 9.2 mg/dL (8.5-10.1); CARBON DIOXIDE 30 mmol/L (21-32); CHLORIDE 103 mmol/L (98-107); CREATININE 0.7 mg/dL (0.6-1.3); GLUCOSE 106 mg/dL (74-106); POTASSIUM 4.4 mmol/L (3.5-5.1); SODIUM SERUM 140 mmol/L (136-145); UREA NITROGEN, BLOOD 18 mg/dL (7-18)
[2024-05-02 08:00] VITALS: BP 111/59; TEMP 97.9; O2SAT 94
[2024-05-02 08:20] VITALS: BP 111/59
== END 2024-05-02 15:00 | disposition home or self-care (01) | DRG 282 ==
LOC: ER 17:22 → TELE 21:17
PROVIDERS: ATTEND Internal Medicine
PROC: 4A023N7 Measurement of Cardiac Sampling and Pressure, Left Heart, Percutaneous Approach (ICD-10-PCS; principal; 2024-05-01)
PROC: B211YZZ Fluoroscopy of Multiple Coronary Arteries using Other Contrast (ICD-10-PCS; 2024-05-01)
DX: I25.10 Atherosclerotic heart disease of native coronary artery without angina pectoris (principal); I21.A1 Myocardial infarction type 2; E86.0 Dehydration; E11.9 Type 2 diabetes mellitus without complications; E03.9 Hypothyroidism, unspecified; E78.5 Hyperlipidemia, unspecified; I10 Essential (primary) hypertension; Z87.891 Personal history of nicotine dependence; Z95.5 Presence of coronary angioplasty implant and graft
CPT/HCPCS: 36415; 71045-TC; 71250-TC; 75574; 80048-TC; 83735-TC; 84100-TC; 84484-TC; 85025-TC; 85610-TC; 85730-TC; 93307-TC; 97112-TC; 97116-TC; 97530-TC; A4223; G0378; J1644; J2250; J2470; J3010; J3490; J7040; J7050; Q9967